=== PATIENT | male | born 1960 | race Caucasian/White ===

== ENCOUNTER 2020-11-26 21:41 | Inpatient (IN) ==
[2020-11-26 22:58] LABS: Hemoglobin 11.3 g/dL (12.9-16.9); Immature Granulocytes % 0.7 % (0-4)
[2020-11-26 23:00] LABS: Basophils % 0.7 %; Eosinophils # 0.1 K/mcL (0.0-0.6); Eosinophils % 1.5 %; Hematocrit 34.6 % (37.5-50.1); Immature Platelets 12.4 % (1.1-6.1); Lymphocytes # 0.7 K/mcL (0.6-4.6); Lymphocytes % 13.5 %; Mean Corpuscular HGB Conc 32.7 g/dL (31.6-35.5); Mean Corpuscular Volume 91.8 fL (83.0-100.0); Mean Platelet Volume 12.4 fL (9.4-12.4); Monocytes # 0.6 K/mcL (0.0-1.3); Monocytes % 10.4 %; Red Blood Count 3.77 M/mcL (4.19-5.50); Red Cell Distribution Width 11.8 % (11.5-14.5); Segmented Neutrophils % 73.2 %; White Blood Count 5.5 K/mcL (4.3-11.1)
[2020-11-26 23:19] LABS: Alanine Aminotransferase 15 Units/L (7-52); Albumin 4.4 g/dL (3.5-5.7); Albumin/Globulin Ratio 1.4 (1.1-2.2); Alkaline Phosphatase 323 Units/L (34-104); Aspartate Amino Transferase 17 Units/L (13-39); BUN/Creatinine Ratio 20 (6-26); Bilirubin,Direct 0.1 mg/dL (0.0-0.2); Bilirubin,Indirect 0.6 mg/dL (0.0-1.0); Bilirubin,Total 0.7 mg/dL (0.3-1.0); Blood Urea Nitrogen 29 mg/dL (8-23); Calcium 9.6 mg/dL (8.6-10.3); Carbon Dioxide 23 mEq/L (23-29); Chloride 103 mEq/L (98-107); Ethanol < 10 mg/dL (Less than 10); Globulin 3.1 g/dL (2.4-3.5); Glucose 118 mg/dL (70-105); Osmolality,Calculated 289 (280-300); Potassium 3.7 mEq/L (3.5-5.1); Sodium 136 mEq/L (136-145); Total Protein 7.5 g/dL (6.4-8.9); Troponin I < 0.03 ng/mL (< 0.04); eGFR For African Americans 59 (> 60); eGFR For Non-African Americans 49 (> 60)
[2020-11-26 23:20] LABS: INR 1.1; Platelet Count 87 K/mcL (140-400); Prothrombin Time 12.6 Seconds (9.4-12.1)
[2020-11-26 23:22] LABS: Activated Partial Thrombo Time 31.7 Seconds (26.0-36.0)
[2020-11-26] MEDS ORDERED: Ondansetron 4 MG/2 ML VIAL IVP ONE (23:52)
[2020-11-27] MEDS ORDERED: Sucralfate 1 GM TABLET PO STA (00:54)
[2020-11-27] MEDS ORDERED: 0.9 % Sodium Chloride 1,000 ML IVC ONE (01:25)
[2020-11-27 05:49] LABS: Amphetamine Screen,Urine Negative ng/mL (Cutoff=1000); Barbiturate Screen,Urine Negative ng/mL (Cutoff=200); Benzodiazepines Screen,Urine Positive ng/mL (Cutoff=200); Cannabinoid Screen,Urine Negative ng/mL (Cutoff = 50); Cocaine Screen,Urine Negative ng/mL (Cutoff= 300); Opiate Screen,Urine Negative ng/mL (Cutoff=300); Phencyclidine Screen,Urine Negative ng/mL (Cutoff=25)
[2020-11-27 06:11] LABS: Bilirubin,Urine Negative (Negative); Blood,Urine Moderate (Negative); Clarity,Urine Clear (Clear); Color,Urine Light-Yellow (Yellow); Glucose,Urine (UA) Normal (Normal); Ketones,Urine 20 mg/dL (Negative); Leukocyte Esterase,Urine Negative (Negative); Nitrite,Urine Negative (Negative); Protein,Urine 50 mg/dL (Neg-Trace); Specific Gravity,Urine 1.015 (1.010-1.025); Squamous Epithelial Cell,Urine Few per hpf (None-Few); Urobilinogen,Urine Normal (Normal)
[2020-11-27] MEDS ORDERED: Naloxone 0.4 MG/ML INJ IVP PRN (07:30)
[2020-11-27] MEDS ORDERED: Famotidine 20 MG/2 ML VIAL IVP ONE (07:33)
[2020-11-27] MEDS ORDERED: 0.9 % Sodium Chloride 1,000 ML IVC SCH ×2 (07:45→17:45)
[2020-11-27] MEDS: Ondansetron 4 MG/2 ML VIAL IVP PRN ×2 (11:48→22:38)
[2020-11-27] MEDS ORDERED: Gadolinium Contrast Agent (WT Based) IV PRN (15:49)
[2020-11-27] MEDS: *HR* Heparin 5,000 UNIT/ML VIAL SQ SCH (18:54)
[2020-11-27] MEDS ORDERED: Lithium Carbonate 300 MG CAPSULE PO SCH (21:00)
[2020-11-27] MEDS: QUEtiapine Fumarate 300 MG TABLET PO SCH (21:08)
[2020-11-27] MEDS: Pregabalin 75 MG CAPSULE PO SCH (21:08)
[2020-11-27 21:10] LABS: Acetaminophen < 10 mcg/mL (10-20); BUN/Creatinine Ratio 18 (6-26); Blood Urea Nitrogen 21 mg/dL (8-23); Carbon Dioxide 20 mEq/L (23-29); Chloride 107 mEq/L (98-107); Glucose 145 mg/dL (70-105); Osmolality,Calculated 294 (280-300); Potassium 3.8 mEq/L (3.5-5.1); Salicylate < 2.5 mg/dL (15.0-30.0); Sodium 139 mEq/L (136-145); eGFR For African Americans > 60 (> 60); eGFR For Non-African Americans > 60 (> 60)
[2020-11-27] MEDS: ALPRAZolam 0.5 MG TABLET PO SCH (21:14)
[2020-11-27] MEDS ORDERED: Potassium Chloride 40 MEQ, Lidocaine 1% 2 ML in 0.9 % Sodium Chloride 500 ML IVPB ONE (21:34)
[2020-11-28 01:34] LABS: Basophils % 0.3 %; Eosinophils % 0.3 %; Lymphocytes % 7.4 %; Red Cell Distribution Width 11.8 % (11.5-14.5)
[2020-11-28 01:36] LABS: Hemoglobin 10.6 g/dL (12.9-16.9); Immature Granulocytes % 0.6 % (0-4); Immature Platelets 11.9 % (1.1-6.1); Lymphocytes # 0.5 K/mcL (0.6-4.6); Mean Corpuscular HGB Conc 32.1 g/dL (31.6-35.5); Mean Corpuscular Hemoglobin 29.9 pg (28.0-33.3); Mean Corpuscular Volume 93.2 fL (83.0-100.0); Mean Platelet Volume 12.6 fL (9.4-12.4); Monocytes # 0.7 K/mcL (0.0-1.3); Monocytes % 9.7 %; Neutrophils # 5.6 K/mcL (1.6-8.9); Red Blood Count 3.54 M/mcL (4.19-5.50); Segmented Neutrophils % 81.7 %; White Blood Count 6.9 K/mcL (4.3-11.1)
[2020-11-28 01:46] LABS: BUN/Creatinine Ratio 19 (6-26); Blood Urea Nitrogen 22 mg/dL (8-23); Calcium 8.8 mg/dL (8.6-10.3); Carbon Dioxide 23 mEq/L (23-29); Chloride 107 mEq/L (98-107); Glucose 141 mg/dL (70-105); Osmolality,Calculated 296 (280-300); Potassium 4.3 mEq/L (3.5-5.1); Sodium 140 mEq/L (136-145); eGFR For African Americans > 60 (> 60); eGFR For Non-African Americans > 60 (> 60)
[2020-11-28 01:53] LABS: Platelet Count 71 K/mcL (140-400)
[2020-11-28] MEDS: *HR* Heparin 5,000 UNIT/ML VIAL SQ SCH ×2 (05:26→18:24)
[2020-11-28 06:30] LABS: Lithium 2.3 mEq/L (0.6-1.2)
[2020-11-28] MEDS ORDERED: Sodium Bicarbonate 50 MEQ/50 ML VIAL IVP ONE ×2 (06:49→06:50)
[2020-11-28] MEDS ORDERED: Cyanocobalamin (B-12) 1,000 MCG/ML VIAL SQ ONE (07:37)
[2020-11-28] MEDS ORDERED: Lithium Carbonate 300 MG CAPSULE PO SCH (09:00)
[2020-11-28] MEDS: Multivit/Ca/Min/Fe/FA 1 TAB TABLET PO SCH (09:32)
[2020-11-28] MEDS: ALPRAZolam 0.5 MG TABLET PO SCH (09:32)
[2020-11-28] MEDS: Pregabalin 75 MG CAPSULE PO SCH ×2 (09:32→20:34)
[2020-11-28] MEDS: Ringers Solution, Lactated 1,000 ML IVC SCH ×2 (09:32→20:31)
[2020-11-28 16:37] LABS: Adenovirus Not Detected (Not Detect); Bordetella Pertussis Not Detected (Not Detect); Chlamydophila pneumoniae Not Detected (Not Detect); Coronavirus 229E Not Detected (Not Detect); Coronavirus HKU1 Not Detected (Not Detect); Coronavirus NL63 Not Detected (Not Detect); Coronavirus OC43 Not Detected (Not Detect); Human Metapneumovirus Not Detected (Not Detect); Human Rhinovirus/Enterovirus Not Detected (Not Detect); Influenza A Subtype 2009 H1 Not Detected (Not Detect); Influenza B Not Detected (Not Detect); Mycoplasma pneumoniae Not Detected (Not Detect); Parainfluenza Virus 1 Not Detected (Not Detect); Parainfluenza Virus 2 Not Detected (Not Detect); Parainfluenza Virus 3 Not Detected (Not Detect); Parainfluenza Virus 4 Not Detected (Not Detect); Respiratory Syncytial Virus Not Detected (Not Detect); SARS-CoV-2 Not Detected (Not Detect)
[2020-11-29] MEDS: Ringers Solution, Lactated 1,000 ML IVC SCH ×2 (06:28→15:47)
[2020-11-29] MEDS: *HR* Heparin 5,000 UNIT/ML VIAL SQ SCH ×2 (06:29→15:49)
[2020-11-29] MEDS: Chlorhexidine Rinse 15 ML MOUTHWASH MM SCH ×3 (08:07→20:06)
[2020-11-29 08:56] LABS: Basophils % 0.5 %; Eosinophils # 0.1 K/mcL (0.0-0.6); Eosinophils % 1.8 %; Hematocrit 34.6 % (37.5-50.1); Hemoglobin 11.2 g/dL (12.9-16.9); Immature Granulocytes % 0.5 % (0-4); Immature Platelets 14.4 % (1.1-6.1); Lymphocytes # 0.9 K/mcL (0.6-4.6); Lymphocytes % 20.4 %; Mean Corpuscular HGB Conc 32.4 g/dL (31.6-35.5); Mean Corpuscular Hemoglobin 30.6 pg (28.0-33.3); Mean Corpuscular Volume 94.5 fL (83.0-100.0); Mean Platelet Volume 13.1 fL (9.4-12.4); Monocytes # 0.4 K/mcL (0.0-1.3); Monocytes % 9.7 %; Red Blood Count 3.66 M/mcL (4.19-5.50); Red Cell Distribution Width 11.6 % (11.5-14.5); Segmented Neutrophils % 67.1 %; White Blood Count 4.4 K/mcL (4.3-11.1)
[2020-11-29 08:57] LABS: Platelet Count 51 K/mcL (140-400)
[2020-11-29] MEDS ORDERED: Cyanocobalamin (B-12) 1,000 MCG TABLET PO SCH (09:00)
[2020-11-29 09:14] LABS: BUN/Creatinine Ratio 14 (6-26); Blood Urea Nitrogen 14 mg/dL (8-23); Calcium 9.5 mg/dL (8.6-10.3); Carbon Dioxide 26 mEq/L (23-29); Chloride 104 mEq/L (98-107); Glucose 180 mg/dL (70-105); Magnesium 1.9 mg/dL (1.6-2.6); Osmolality,Calculated 293 (280-300); Potassium 3.7 mEq/L (3.5-5.1); Sodium 139 mEq/L (136-145); eGFR For African Americans > 60 (> 60); eGFR For Non-African Americans > 60 (> 60)
[2020-11-29 09:16] LABS: % Iron Saturation 19 % (20-55); Iron 61 mcg/dL (65-175); Transferrin 224 mg/dL (203-362)
[2020-11-29 09:33] LABS: Ferritin 332 ng/mL (20-250)
[2020-11-29] MEDS: Pregabalin 75 MG CAPSULE PO SCH ×2 (10:32→20:06)
[2020-11-29] MEDS: Multivit/Ca/Min/Fe/FA 1 TAB TABLET PO SCH (10:32)
[2020-11-29] MEDS: Ondansetron 4 MG/2 ML VIAL IVP PRN (12:06)
[2020-11-30] MEDS: Ringers Solution, Lactated 1,000 ML IVC SCH (01:47)
[2020-11-30] MEDS: *HR* Heparin 5,000 UNIT/ML VIAL SQ SCH ×2 (06:14→17:37)
[2020-11-30 07:15] LABS: Basophils % 0.3 %; Red Cell Distribution Width 11.4 % (11.5-14.5)
[2020-11-30 07:17] LABS: Eosinophils # 0.1 K/mcL (0.0-0.6); Eosinophils % 1.3 %; Hematocrit 33.1 % (37.5-50.1); Hemoglobin 10.8 g/dL (12.9-16.9); Immature Granulocytes % 1.3 % (0-4); Immature Platelets 14.7 % (1.1-6.1); Lymphocytes # 0.8 K/mcL (0.6-4.6); Lymphocytes % 19.8 %; Mean Corpuscular HGB Conc 32.6 g/dL (31.6-35.5); Mean Corpuscular Hemoglobin 30.1 pg (28.0-33.3); Mean Corpuscular Volume 92.2 fL (83.0-100.0); Mean Platelet Volume 12.1 fL (9.4-12.4); Monocytes # 0.4 K/mcL (0.0-1.3); Monocytes % 9.5 %; Neutrophils # 2.6 K/mcL (1.6-8.9); Platelet Count 49 K/mcL (140-400); Red Blood Count 3.59 M/mcL (4.19-5.50); Segmented Neutrophils % 67.8 %; White Blood Count 3.9 K/mcL (4.3-11.1)
[2020-11-30 07:40] LABS: Blood Urea Nitrogen 12 mg/dL (8-23); Calcium 9.4 mg/dL (8.6-10.3); Carbon Dioxide 25 mEq/L (23-29); Chloride 106 mEq/L (98-107); Glucose 210 mg/dL (70-105); Magnesium 1.9 mg/dL (1.6-2.6); Osmolality,Calculated 296 (280-300); Potassium 3.7 mEq/L (3.5-5.1); Sodium 140 mEq/L (136-145)
[2020-11-30] MEDS: Pregabalin 75 MG CAPSULE PO SCH ×2 (09:26→20:31)
[2020-11-30] MEDS: Chlorhexidine Rinse 15 ML MOUTHWASH MM SCH ×2 (09:26→20:32)
[2020-11-30] MEDS: Multivit/Ca/Min/Fe/FA 1 TAB TABLET PO SCH (09:27)
[2020-11-30 09:58] LABS: BUN/Creatinine Ratio 13 (6-26); eGFR For African Americans > 60 (> 60); eGFR For Non-African Americans > 60 (> 60)
[2020-11-30] MEDS: ALPRAZolam 0.5 MG TABLET PO SCH ×2 (14:35→20:31)
[2020-11-30] MEDS: Lithium Carbonate ER 300 MG TABLET.ER PO SCH (14:35)
[2020-11-30] MEDS: QUEtiapine Fumarate 300 MG TABLET PO SCH (20:33)
[2020-12-01 02:43] LABS: Basophils % 0.6 %; Eosinophils # 0.1 K/mcL (0.0-0.6); Eosinophils % 1.6 %; Hematocrit 34.8 % (37.5-50.1); Hemoglobin 11.8 g/dL (12.9-16.9); Immature Granulocytes % 0.8 % (0-4); Immature Platelets 16.4 % (1.1-6.1); Lymphocytes # 1.1 K/mcL (0.6-4.6); Lymphocytes % 21.8 %; Mean Corpuscular HGB Conc 33.9 g/dL (31.6-35.5); Mean Corpuscular Hemoglobin 31.3 pg (28.0-33.3); Mean Corpuscular Volume 92.3 fL (83.0-100.0); Mean Platelet Volume 13.7 fL (9.4-12.4); Monocytes # 0.5 K/mcL (0.0-1.3); Monocytes % 10.4 %; Neutrophils # 3.2 K/mcL (1.6-8.9); Red Blood Count 3.77 M/mcL (4.19-5.50); Red Cell Distribution Width 11.5 % (11.5-14.5); Segmented Neutrophils % 64.8 %; White Blood Count 4.9 K/mcL (4.3-11.1)
[2020-12-01 02:44] LABS: Platelet Count 67 K/mcL (140-400)
[2020-12-01 02:54] LABS: BUN/Creatinine Ratio 12 (6-26); Blood Urea Nitrogen 12 mg/dL (8-23); Calcium 9.5 mg/dL (8.6-10.3); Carbon Dioxide 27 mEq/L (23-29); Chloride 107 mEq/L (98-107); Glucose 286 mg/dL (70-105); Osmolality,Calculated 300 (280-300); Potassium 3.9 mEq/L (3.5-5.1); Sodium 140 mEq/L (136-145); eGFR For African Americans > 60 (> 60); eGFR For Non-African Americans > 60 (> 60)
[2020-12-01] MEDS: *HR* Heparin 5,000 UNIT/ML VIAL SQ SCH ×2 (06:42→18:32)
[2020-12-01] MEDS: Pregabalin 75 MG CAPSULE PO SCH ×2 (10:32→22:03)
[2020-12-01] MEDS: Chlorhexidine Rinse 15 ML MOUTHWASH MM SCH ×2 (10:33→22:01)
[2020-12-01] MEDS: Multivit/Ca/Min/Fe/FA 1 TAB TABLET PO SCH (10:33)
[2020-12-01] MEDS: ALPRAZolam 0.5 MG TABLET PO SCH ×3 (10:33→22:04)
[2020-12-01] MEDS: Lithium Carbonate ER 300 MG TABLET.ER PO SCH (10:33)
[2020-12-01] MEDS: Ringers Solution, Lactated 1,000 ML IVC SCH (13:31)
[2020-12-01] MEDS: QUEtiapine Fumarate 300 MG TABLET PO SCH (22:02)
[2020-12-02] MEDS ORDERED: D5% in Water 1,000 ML IVC PRN (02:14)
[2020-12-02] MEDS ORDERED: *HR* Dextrose 50 % in Water (Vial) 50 ML VIAL IVP PRN (02:14)
[2020-12-02] MEDS ORDERED: Dextrose Gel 15 GM/37.5 ML TUBE PO PRN ×2 (02:14)
[2020-12-02] MEDS: Insulin LISPRO 300 UNITS/3 ML VIAL SUBQ SCH ×5 (02:32→20:58)
[2020-12-02] MEDS: *HR* Heparin 5,000 UNIT/ML VIAL SQ SCH ×2 (05:00→17:27)
[2020-12-02 05:49] LABS: Basophils % 0.5 %; Eosinophils # 0.1 K/mcL (0.0-0.6); Eosinophils % 1.4 %; Hematocrit 31.7 % (37.5-50.1); Hemoglobin 10.5 g/dL (12.9-16.9); Immature Granulocytes % 0.5 % (0-4); Immature Platelets 23.7 % (1.1-6.1); Lymphocytes # 1.5 K/mcL (0.6-4.6); Lymphocytes % 34.5 %; Mean Corpuscular HGB Conc 33.1 g/dL (31.6-35.5); Mean Corpuscular Hemoglobin 30.3 pg (28.0-33.3); Mean Corpuscular Volume 91.6 fL (83.0-100.0); Mean Platelet Volume 14.5 fL (9.4-12.4); Monocytes # 0.4 K/mcL (0.0-1.3); Monocytes % 9.9 %; Neutrophils # 2.3 K/mcL (1.6-8.9); Red Blood Count 3.46 M/mcL (4.19-5.50); Red Cell Distribution Width 11.6 % (11.5-14.5); Segmented Neutrophils % 53.2 %; White Blood Count 4.4 K/mcL (4.3-11.1)
[2020-12-02 05:51] LABS: Platelet Count 69 K/mcL (140-400)
[2020-12-02 06:05] LABS: BUN/Creatinine Ratio 13 (6-26); Blood Urea Nitrogen 14 mg/dL (8-23); Carbon Dioxide 27 mEq/L (23-29); Chloride 108 mEq/L (98-107); Estimated Average Glucose 154 mg/dl; Glucose 201 mg/dL (70-105); Osmolality,Calculated 300 (280-300); Potassium 3.7 mEq/L (3.5-5.1); Sodium 142 mEq/L (136-145); eGFR For African Americans > 60 (> 60); eGFR For Non-African Americans > 60 (> 60)
[2020-12-02] MEDS: ALPRAZolam 0.5 MG TABLET PO SCH ×3 (08:42→20:57)
[2020-12-02] MEDS: Pregabalin 75 MG CAPSULE PO SCH ×2 (08:42→20:57)
[2020-12-02] MEDS: Chlorhexidine Rinse 15 ML MOUTHWASH MM SCH ×2 (08:42→20:58)
[2020-12-02] MEDS: Multivit/Ca/Min/Fe/FA 1 TAB TABLET PO SCH (08:42)
[2020-12-02] MEDS: Lithium Carbonate ER 300 MG TABLET.ER PO SCH (08:52)
[2020-12-02 15:10] VITALS: BP 100/70; PULSE 97; TEMP 98.1; O2SAT 97
[2020-12-02] MEDS: QUEtiapine Fumarate 300 MG TABLET PO SCH (20:57)
== END 2020-12-02 22:23 | DRG 917 ==
LOC: 3ANU 21:41 → EMEROOARM 21:41 → SUATTDRO 11-27 02:01 → 3ANU 11-27 03:00
PROVIDERS: ADMIT Internal Medicine; ATTEND Pharmacist

== ENCOUNTER 2021-04-29 10:59 | Observation (INO) ==
[2021-04-29] MEDS ORDERED: Isovue-370 500 ML BOTTLE IVP ONE (11:13)
[2021-04-29 11:35] LABS: Hematocrit 37.2 % (37.5-50.1); Hemoglobin 12.3 g/dL (12.9-16.9); Mean Corpuscular HGB Conc 33.1 g/dL (31.6-35.5); Mean Corpuscular Hemoglobin 30.8 pg (28.0-33.3); Mean Platelet Volume 11.8 fL (9.4-12.4); Red Cell Distribution Width 11.8 % (11.5-14.5); White Blood Count 4.1 K/mcL (4.3-11.1)
[2021-04-29 11:36] LABS: Platelet Count 51 K/mcL (140-400)
[2021-04-29] MEDS ORDERED: 0.9 % Sodium Chloride 1,000 ML IVC ONE (11:45)
[2021-04-29 12:07] LABS: VBG HCO3 26 mEq/L (21-27); VBG PCO2 44 mmHg (41-51); VBG PH 7.37 pH Units (7.32-7.42); VBG PO2 33 mmHg (25-50)
[2021-04-29 12:17] LABS: BUN/Creatinine Ratio 12 (6-26); Blood Urea Nitrogen 18 mg/dL (8-23); Calcium 9.1 mg/dL (8.6-10.3); Carbon Dioxide 23 mEq/L (23-29); Chloride 101 mEq/L (98-107); Glucose 520 mg/dL (70-105); Osmolality,Calculated 303 (280-300); Potassium 3.9 mEq/L (3.5-5.1); Sodium 134 mEq/L (136-145); Troponin I < 0.03 ng/mL (< 0.04); eGFR For African Americans 56 (> 60); eGFR For Non-African Americans 46 (> 60)
[2021-04-29] MEDS ORDERED: Aspirin 325 MG TABLET PO ONE (13:25)
[2021-04-29] MEDS ORDERED: Insulin Human Regular 10 UNIT in 0.9 % Sodium Chloride 10 ML SUBQ STA (13:27)
[2021-04-29] MEDS ORDERED: *HR* Dextrose 50 % in Water (Syg) 50 ML SYRINGE IVP PRN (14:00)
[2021-04-29] MEDS ORDERED: Naloxone 0.4 MG/ML INJ IVP PRN (14:00)
[2021-04-29] MEDS ORDERED: D5% in Water 1,000 ML IVC PRN (14:00)
[2021-04-29] MEDS ORDERED: Dextrose Gel 15 GM/37.5 ML TUBE PO PRN ×2 (14:00)
[2021-04-29] MEDS ORDERED: Acetaminophen 325 MG TABLET PO PRN (14:00)
[2021-04-29] MEDS ORDERED: Ondansetron 4 MG/2 ML VIAL IVP PRN (14:00)
[2021-04-29] MEDS: 0.9 % Sodium Chloride 1,000 ML IVC SCH (16:27)
[2021-04-29] MEDS: ALPRAZolam 0.5 MG TABLET PO SCH ×2 (16:28→21:21)
[2021-04-29] MEDS: Artificial Tears SOLN 15 ML BOTTLE BOTH EYES SCH ×2 (16:28→21:22)
[2021-04-29] MEDS: Insulin LISPRO 300 UNITS/3 ML VIAL SUBQ SCH (16:28)
[2021-04-29 19:53] VITALS: TEMP 98.1
[2021-04-29] MEDS ORDERED: Insulin DETEMIR 100 UNIT/ML X5UNITS SUBQ SCH (21:00)
[2021-04-29] MEDS ORDERED: Lithium Carbonate ER 300 MG TABLET.ER PO SCH (21:00)
[2021-04-29] MEDS ORDERED: QUEtiapine Fumarate 300 MG TABLET PO SCH (21:00)
[2021-04-29] MEDS: Pregabalin 75 MG CAPSULE PO SCH (21:22)
[2021-04-30 02:30] LABS: Eosinophils # 0.1 K/mcL (0.0-0.6); Eosinophils % 1.5 %; Hematocrit 32.4 % (37.5-50.1); Hemoglobin 11.1 g/dL (12.9-16.9); Lymphocytes # 1.6 K/mcL (0.6-4.6); Mean Corpuscular HGB Conc 34.3 g/dL (31.6-35.5); Mean Corpuscular Hemoglobin 31.1 pg (28.0-33.3); Mean Corpuscular Volume 90.8 fL (83.0-100.0); Mean Platelet Volume 11.6 fL (9.4-12.4); Monocytes # 0.4 K/mcL (0.0-1.3); Monocytes % 10.1 %; Red Blood Count 3.57 M/mcL (4.19-5.50); Red Cell Distribution Width 11.7 % (11.5-14.5); Segmented Neutrophils % 46.4 %
[2021-04-30 02:32] LABS: Neutrophils # 1.9 K/mcL (1.6-8.9); Platelet Count 47 K/mcL (140-400)
[2021-04-30 02:50] LABS: BUN/Creatinine Ratio 13 (6-26); Blood Urea Nitrogen 16 mg/dL (8-23); Calcium 8.4 mg/dL (8.6-10.3); Carbon Dioxide 23 mEq/L (23-29); Chloride 106 mEq/L (98-107); Chol/HDL Ratio 7.4 (0-4.9); Cholesterol 184 mg/dL (< 200); Glucose 223 mg/dL (70-105); HDL Cholesterol 25 mg/dL (40-59); Magnesium 1.7 mg/dL (1.6-2.6); Osmolality,Calculated 292 (280-300); Phosphorous 2.9 mg/dL (2.7-4.5); Potassium 3.7 mEq/L (3.5-5.1); Prothrombin Time 11.6 Seconds (9.4-12.1); Sodium 137 mEq/L (136-145); Triglycerides 836 mg/dL (< 150); Troponin I < 0.03 ng/mL (< 0.04); eGFR For African Americans > 60 (> 60); eGFR For Non-African Americans > 60 (> 60)
[2021-04-30 03:03] LABS: LDL Cholesterol,Direct 32 mg/dL (75-193)
[2021-04-30] MEDS: 0.9 % Sodium Chloride 1,000 ML IVC SCH (03:23)
[2021-04-30 05:38] LABS: Estimated Average Glucose 220 mg/dl; Hemoglobin A1C 9.3 %
[2021-04-30] MEDS: PARNATE PO SCH ×2 (06:02→13:06)
[2021-04-30 07:33] VITALS: BP 113/53; PULSE 51; O2SAT 95
[2021-04-30] MEDS ORDERED: predniSONE 20 MG TABLET PO ONE (08:28)
[2021-04-30] MEDS ORDERED: NON-FORMULARY MEDICATION 1 EACH EACH (Omega-3/Dha/Epa/Fish Oil [Fish Oil 1,000 Mg Softgel] PO SCH (09:00)
[2021-04-30] MEDS ORDERED: Multivit/Ca/Min/Fe/FA 1 TAB TABLET PO SCH (09:00)
[2021-04-30] MEDS ORDERED: Fluticasone Propionate Nasal 50 MCG/SPRAY BOTTLE NS SCH (09:00)
[2021-04-30] MEDS ORDERED: Loratadine 10 MG TABLET PO SCH (09:00)
[2021-04-30] MEDS: Pregabalin 75 MG CAPSULE PO SCH (09:26)
[2021-04-30] MEDS: ALPRAZolam 0.5 MG TABLET PO SCH (09:26)
[2021-04-30] MEDS: Artificial Tears SOLN 15 ML BOTTLE BOTH EYES SCH ×2 (09:27→13:06)
[2021-04-30] MEDS: Insulin LISPRO 300 UNITS/3 ML VIAL SUBQ SCH ×2 (09:27→13:06)
== END 2021-04-30 13:02 | disposition home or self-care (01) ==
LOC: 3BNU 10:59 → EMEROOARM 10:59 → SUATTDRO 14:13 → 3BNU 15:07
PROVIDERS: ADMIT Family Medicine; ATTEND Internal Medicine